=== PATIENT | male | born 1970 | race Caucasian/White ===

== ENCOUNTER → 2020-09-20 | Outpatient (CLI) | payer OTHER ==
[~2020-09-20] MED LIST: ALPRAZOLAM1 MG PO; ASPIRIN EC81 MG PO; CARAFATE1 GM PO; HYDROCODON-ACE1 EAC6 PO; LOPRESSOR 25 MG25 MG PO; NORVASC 5 MG TAB5 MG PO; PANTOPRAZOLE SO40 MG PO; PRINIVIL10 MG PO; SINGULAIR10 MG PO; SYMBICORT 16010.2 GM INH; TIZANIDINE HCL4 MG PO; VENTOLIN HFA 66.7 GM INH; XANAX1 MG PO
== END ==
LOC: CT 08:00
DX: R10.13 Epigastric pain (principal); K31.89 Other diseases of stomach and duodenum; N40.0 Benign prostatic hyperplasia without lower urinary tract symptoms; K40.30 Unilateral inguinal hernia, with obstruction, without gangrene, not specified as recurrent; K76.0 Fatty (change of) liver, not elsewhere classified; I70.0 Atherosclerosis of aorta
CPT/HCPCS: 36415; 82565; Q9967

== ENCOUNTER → 2020-09-30 | Day surgery (SDC) | payer OTHER | END | disposition home or self-care (01) | LOC: OR 07:15 | PROVIDERS: Internal Medicine Gastroenterology | PROC: 0DB78ZX Excision of Stomach, Pylorus, Via Natural or Artificial Opening Endoscopic, Diagnostic (ICD-10-PCS; principal; 2020-09-30 08:00) | DX: K29.70 Gastritis, unspecified, without bleeding (principal); K25.9 Gastric ulcer, unspecified as acute or chronic, without hemorrhage or perforation; K31.89 Other diseases of stomach and duodenum; K22.10 Ulcer of esophagus without bleeding; K44.9 Diaphragmatic hernia without obstruction or gangrene; I10 Essential (primary) hypertension; J44.9 Chronic obstructive pulmonary disease, unspecified; F41.9 Anxiety disorder, unspecified; G89.29 Other chronic pain; M54.9 Dorsalgia, unspecified; E66.01 Morbid (severe) obesity due to excess calories; Z68.33 Body mass index [BMI] 33.0-33.9, adult; Z88.0 Allergy status to penicillin; Z88.8 Allergy status to other drugs, medicaments and biological substances; Z87.891 Personal history of nicotine dependence; Z79.82 Long term (current) use of aspirin; Z79.899 Other long term (current) drug therapy; Z20.822 Contact with and (suspected) exposure to COVID-19 | CPT/HCPCS: 93005; J2001; J2704; J7040 ==